=== PATIENT | female | born 1955 | race Caucasian/White ===

== ENCOUNTER 2023-04-27 08:52 | Outpatient (CLI) | payer MEDICARE, BC | END 2023-04-27 08:53 | disposition home or self-care (01) | LOC: BICRAD 08:52 | PROVIDERS: ATTEND Family Medicine | DX: D17.24 Benign lipomatous neoplasm of skin and subcutaneous tissue of left leg (principal); R22.42 Localized swelling, mass and lump, left lower limb ==

== ENCOUNTER 2023-10-12 10:12 | Outpatient (CLI) | payer MEDICARE, BC | END 2023-10-12 10:13 | disposition home or self-care (01) | LOC: BICMAMMO 10:12 | PROVIDERS: ATTEND Family Medicine | DX: Z12.31 Encounter for screening mammogram for malignant neoplasm of breast (principal); Z80.3 Family history of malignant neoplasm of breast; Z91.89 Other specified personal risk factors, not elsewhere classified | CPT/HCPCS: 77063; 77067 ==

== ENCOUNTER 2024-07-12 11:56 | Outpatient (CLI) | payer MEDICARE, BC ==
[2024-07-12] MEDS ORDERED: GASTROGRAFIN 30 ML BOT ONE (11:59)
[2024-07-12] MEDS ORDERED: Iopamidol 370 76% 100 ML VIAL ONE (11:59)
== END 2024-07-12 11:57 | disposition home or self-care (01) ==
LOC: CT 11:56
PROVIDERS: ATTEND Physician Assistant
DX: C54.1 Malignant neoplasm of endometrium (principal); J98.4 Other disorders of lung; R93.89 Abnormal findings on diagnostic imaging of other specified body structures; I70.0 Atherosclerosis of aorta; M51.379 Other intervertebral disc degeneration, lumbosacral region without mention of lumbar back pain or lower extremity pain; M47.817 Spondylosis without myelopathy or radiculopathy, lumbosacral region; M48.07 Spinal stenosis, lumbosacral region; M48.061 Spinal stenosis, lumbar region without neurogenic claudication
CPT/HCPCS: 36415; 74177; 82565

== ENCOUNTER 2025-04-17 15:02 | Outpatient (CLI) | payer MEDICARE, BC | END 2025-04-17 15:03 | disposition home or self-care (01) | LOC: BICMAMMO 15:02 | PROVIDERS: ATTEND Family Medicine | DX: Z13.820 Encounter for screening for osteoporosis (principal); M85.851 Other specified disorders of bone density and structure, right thigh; M85.852 Other specified disorders of bone density and structure, left thigh; Z78.0 Asymptomatic menopausal state | CPT/HCPCS: 77080 ==